=== PATIENT | female | born 1960 | race Caucasian/White ===

== ENCOUNTER 2017-10-12 09:47 | Day surgery (SDC) | payer BC ==
[~2017-10-12 09:47] MED LIST: CEFAZOLIN 1 GM INJ; EPHEDrine SULFATE 50 MG/5 ML SYG
[2017-10-12] MEDS ORDERED: IOHEXOL 300MG/ML 30 ML BTL ×2 (12:14)
[2017-10-12] MEDS ORDERED: PROPOFOL 20 ML ×2 (12:25)
[2017-10-12] MEDS ORDERED: FENTAnyl 50 MCG/ML VIAL ×2 (12:25)
[2017-10-12] MEDS ORDERED: MIDAZOLAM 1 MG/ML 2 ML INJ ×2 (12:25)
[2017-10-12] MEDS ORDERED: OXYCODONE/ACETAMINOPHEN (5/325) TAB PO ×4 (13:00)
[2017-10-12] MEDS ORDERED: ONDANSETRON 4 MG INJ IV ×2 (13:00)
[2017-10-12] MEDS ORDERED: HYDROmorphONE (0.2 MG/ML) 10ML SYG IV ×6 (13:00)
[2017-10-12] MEDS: LIDOCAINE 1% (MPF) 30 ML INJ ×2 (13:41)
[2017-10-12] MEDS: HEPARIN 1000 UNITS/ML 10 ML INJ ×2 (13:42)
== END 2017-10-12 15:21 | disposition home or self-care (01) ==
LOC: SDS 09:47
DX: C50.919 Malignant neoplasm of unspecified site of unspecified female breast (principal)
CPT/HCPCS: 36561; 36563